=== PATIENT | male | born 1995 | race Two or more races ===

== ENCOUNTER 2024-03-22 07:15 | Day surgery (SDC) | payer OTHER, MEDICAID, SELFPAY ==
[2024-03-19 09:52] VITALS: BMI 33.7
[2024-03-19 10:08] LABS: Collection Type, Urine Clean Catch; Squamous Epithelial Cell,Urine 0 /hpf (0-5)
[2024-03-19 10:21] LABS: Basophils # (Auto) 0.1 Thou/mm3 (0.0-0.2); Basophils % (Auto) 1 % (0-2.5); Eosinophils # (Auto) 0.2 Thou/mm3 (0.0-0.5); Eosinophils % (Auto) 3 % (0-10); Hematocrit 43.4 % (41.0-53.0); Hemoglobin 14.9 g/dL (13.5-16.0); Immature Granulocytes % (Auto) 1 % (0-0); Immature Granulocytes Auto 0.06 Thou/mm3 (0.00-0.00); Lymphocytes # (Auto) 2.7 Thou/mm3 (1.0-4.8); Lymphocytes % (Auto) 28 % (10-50); Mean Corpuscular HGB Conc 34.3 g/dl (31.0-37.0); Mean Corpuscular Hemoglobin 28.7 pg (25.0-35.0); Mean Corpuscular Volume 84 fL (80-100); Monocytes # (Auto) 0.7 Thou/mm3 (0.0-0.8); Monocytes % (Auto) 7 % (0-12); Neutrophils # (Auto) 5.9 Thou/mm3 (1.8-7.7); Neutrophils % (Auto) 62 % (37-80); Nucleated Red Blood Cell % 0 /100 WBC (0); Platelet Count 216 Thou/mm3 (140-440); RDW Standard Deviation 39.1 fL (35.1-43.9); White Blood Count 9.7 Thou/mm3 (3.8-10.6)
[2024-03-19 10:24] LABS: Bilirubin,Urine Negative (Negative); Blood,Urine 1+ (Negative); Clarity,Urine Clear (Clear/Hazy); Color,Urine Lt-Yellow (Lt Yel-Yel); Glucose, Urine Negative (Negative); Ketones,Urine Negative (Negative); Leukocyte Esterase,Urine Negative (Negative); Nitrite,Urine Negative (Negative); PH,Urine 5.5 (5.0-7.0); Protein,Urine Negative (Neg - Trace); RBC,Urine 1 /hpf (0-3); Specific Gravity,Urine 1.025 (1.001-1.035); Urobilinogen,Urine Negative mg/dL (0.0-1.0); WBC,Urine 1 /hpf (0-5)
[2024-03-19 10:37] LABS: Anion Gap 8 (7-16); BUN/Creatinine Ratio 17 Ratio (12-20); Blood Urea Nitrogen 12 mg/dL (9-23); Calcium 9.4 mg/dL (8.3-10.6); Carbon Dioxide 25.4 mMol/L (20.0-31.0); Chloride 106 mMol/L (98-107); Creatinine (Component) 0.7 mg/dL (0.6-1.3); Estimated Creatinine Clearance 173.5 mL/min (>60); Glucose 97 mg/dL (74-106); Osmolality,Calculated 277 (275-295); Potassium 3.8 mMol/L (3.4-5.1); Sodium 139 mMol/L (136-145); eGFR > 60 See Note
--- NOTE | 2024-03-21 11:31 | ESHP_ITS ---
RE: HAO MCWILLIAMS : 1995 DATE OF ADMISSION: 03/22/2024 HISTORY OF PRESENT ILLNESS: A 28-year-old male with a left renal stone 8 mm in size. He is now scheduled to have ESWL for left renal stone. The patient had pain in his back. He has been urinating well. The patient had a history of kidney stones in the past and had surgery in March of 2022. SOCIAL HISTORY: The patient has no children. PAST MEDICAL HISTORY: No history of diabetes mellitus or hypertension. ALLERGIES: NONE KNOWN. MEDICATIONS: None. PHYSICAL EXAMINATION: HEENT: Normal. NECK: Supple. LUNGS: Clear. CARDIOVASCULAR: Heart sounds are normal. ABDOMEN: Soft without any organomegaly. No guarding. No rigidity. EXTREMITIES: Normal. LABORATORY DATA: KUB film was taken, which revealed multiple renal calculi, the largest being 8 mm on the left kidney. IMPRESSION: Left renal calculi. PLAN: ESWL for left kidney stone, which is about 8 mm in size. Planned procedure, risks and complications have been discussed with the patient. The patient has understood them and agreed to proceed. DT: 11:01:39 TT: 11:29:00 Ref: [id number] - TID: [id number]
[2024-03-22] VITALS (7 sets, daily range): BP systolic 117–140; BP diastolic 72–91; PULSE 73–96; RESP 14–18; TEMP 36.2–36.9; O2SAT 97–100; BMI 33.5
--- NOTE | 2024-03-22 06:00 | XR_ITS ---
Examination: Abdomen AP single view Technique: AP portable supine abdomen, single view Exam date and time: March 22, 2024 0723 hours INDICATIONS: Preop lithotripsy, history kidney stones FINDINGS: 7 mm 3 mm calculi mid to lower pole left kidney No ureteral calculi Nonobstructive bowel gas pattern IMPRESSION: Left renal calculus
[2024-03-22] MEDS: RINGERS LACTATED 1000 ML 1,000 ML 20 ML IV (07:58)
--- NOTE | 2024-03-22 10:05 | SUR.PHASEI ---
1005 Patient arrived to recovery resting comfortably in [facility], sleeping and able to arouse with verbal prompting then fall back asleep, breathing unlabored, vital signs stable, denies pain, lung sounds clear upon auscultation, bilateral radial pulses present when palpated, report received from Roselia QURESHI and Dr. Gaston
--- NOTE | 2024-03-22 10:28 | SUR.PHASEI ---
patient eating ice chips tolerating well
--- NOTE | 2024-03-22 10:59 | SUR.PHASEII ---
1059 Patient meets discharge criteria from recovery, awake and alert, breathing unlabored, vital signs stable, denies pain, patient voided prior to discharge, ate a jello and drinking apple juice; denies pain, patient able to dress himself into his clothing, discharge instruction given to patient and patient partner, partner signed discharge instructions. Patient given all his belongings prior to discharge, transported via wheelchair and left in a private vehicle.
--- NOTE | 2024-03-22 11:01 | SUR.OPER ---
Power 7/8 2800 shocks 1.59 Fluro time
--- NOTE | 2024-03-22 15:41 | ESOP_ITS ---
RE: HAO MCWILLIAMS : 1995 DATE OF OPERATION: 03/22/2024 PREOPERATIVE DIAGNOSIS: Left kidney stones. POSTOPERATIVE DIAGNOSIS: Left kidney stones. PROCEDURE PERFORMED: ESWL for left kidney stones. ANESTHESIA: General by Dr. Gaston. INDICATION: The patient is a 28-year-old male with left renal stones about 8 mm in size. He was now scheduled to have ESWL for left renal stones. Planned procedure, risks and complications have been discussed with the patient. The patient understood them and agreed to proceed. DESCRIPTION OF PROCEDURE: After the patient was brought to the operating table under adequate general anesthesia, patient was positioned on Dornier Delta III lithotripsy machine. The 2500 shocks were given to the stone in the left midpole up to power level 7-8. The patient tolerated the entire procedure well and left the room in good condition. Thank you very much for your kind referral. DT: 11:33:30 TT: 15:39:00 Ref: [id number] - TID: [id number]
== END 2024-03-22 10:59 | disposition home or self-care (01) ==
PROVIDERS: PCP Family Medicine; Referring Provider Surgery; Visit Provider Surgery
PROC: (CPT 50590; principal; 2024-03-22 09:15)
DX: N20.0 Calculus of kidney (principal); Z87.442 Personal history of urinary calculi
CPT/HCPCS: 50590; 36415; 74018; 80048; 81001; 85025; A4217; J0694; J1940; J2250; J2405; J2704; J2765; J3010; J7120

== ENCOUNTER 2024-03-24 05:54 | Emergency (ER) | payer OTHER, MEDICAID, SELFPAY ==
[2024-03-24 05:55] VITALS: BMI 32.8
[2024-03-24 06:22] VITALS: BP 149/91; PULSE 101; RESP 23; TEMP 36.6; O2SAT 97
[2024-03-24 06:23] VITALS: BMI 32.8
--- NOTE | 2024-03-24 06:28 | EDRME_ITS ---
Rapid Medical Screening Exam [facility] Arrival date/time: 03/24/24 05:54 Chief Complaint: Back Pain/Injury Time Seen by Provider: 03/24/24 06:20 Vital signs: Vital Signs Temperature 97.9 F 03/24/24 06:22 Pulse Rate 101 H 03/24/24 06:22 Respiratory Rate 23 H 03/24/24 06:22 Blood Pressure 149/91 H 03/24/24 06:22 Pulse Oximetry (%) 97 03/24/24 06:22 Oxygen Delivery Method Room Air 03/24/24 06:22 E Narrative: 28-year-old patient presents emergency department with complaint of flank pain. Patient states that he has a history of kidney stone and recently had lithotripsy done 2 days ago. Patient states that he was supposed to get a stent placed however none was placed he states that he has had difficulty urinating since 2 AM. He has been taking his prescribed [place] but that has not relieved his pain. He rates his pain currently as a 10 out of 10. He denies fever or chills.
--- NOTE | 2024-03-24 06:30 | XR_ITS ---
Examination: CT abdomen and pelvis without contrast. Coronal 3-D reconstructions. Sagittal 2-D reconstructions. Date and time of exam: March 24, 2024 at 0654 hrs. Comparison 11/29/2022 Indications: Left flank pain today, status post lithotripsy procedure for kidney stones March 22, 2024 CTDI: vol (mGy): 9.98 DLP: (mGycm): 587 Technique: Axial images of the abdomen have been obtained, 3 mm slice thickness Intravenous contrast material has not been administered. Low dose protocols were performed. One or more of the following dose reduction techniques were used; automated exposure control, adjustment of the mA and/or KV according to patient size, use of iterative reconstruction technique. Findings: No focal liver or splenic lesion No gallstones No pancreatic mass Aorta normal size Multiple left renal calculi, the largest 6 mm Moderate left hydronephrosis which is secondary to 4 mm mid, 6 mm distal left ureteral calculi No bowel obstruction Tiny fat-containing umbilical hernia Normal appendix No diverticulitis No bladder calculi Impression: Multiple left renal calculi Moderate left hydronephrosis which is secondary to 4 mm mid 6 mm distal left ureteral calculi
[2024-03-24] MEDS: MORPHINE SULF INJ 10 MG/ML VIAL 4 MG IM (07:16)
[2024-03-24] MEDS: KETOROLAC INJ 60 MG/2 ML VIAL IM (07:19)
[2024-03-24 07:59] LABS: Basophils # (Auto) 0.1 Thou/mm3 (0.0-0.2); Basophils % (Auto) 1 % (0-2.5); Eosinophils # (Auto) 0.2 Thou/mm3 (0.0-0.5); Eosinophils % (Auto) 2 % (0-10); Hematocrit 42.6 % (41.0-53.0); Hemoglobin 14.9 g/dL (13.5-16.0); Immature Granulocytes % (Auto) 1 % (0-0); Immature Granulocytes Auto 0.06 Thou/mm3 (0.00-0.00); Lymphocytes # (Auto) 1.9 Thou/mm3 (1.0-4.8); Lymphocytes % (Auto) 15 % (10-50); Mean Corpuscular Hemoglobin 28.7 pg (25.0-35.0); Mean Corpuscular Volume 82 fL (80-100); Monocytes # (Auto) 1.1 Thou/mm3 (0.0-0.8); Monocytes % (Auto) 9 % (0-12); Neutrophils # (Auto) 9.2 Thou/mm3 (1.8-7.7); Neutrophils % (Auto) 74 % (37-80); Nucleated Red Blood Cell % 0 /100 WBC (0); Platelet Count 210 Thou/mm3 (140-440); RDW Standard Deviation 38.2 fL (35.1-43.9); Red Blood Count 5.19 Miln/mm3 (4.50-5.90); White Blood Count 12.5 Thou/mm3 (3.8-10.6)
[2024-03-24 08:15] LABS: Alanine Aminotransferase 59 U/L (10-49); Albumin, Serum 4.5 gm/dL (3.5-5.0); Albumin/Globulin Ratio 1.6 (1.2-2.2); Alkaline Phosphatase 98 U/L (46-116); Anion Gap 8 (7-16); Aspartate Amino Transferase 33 U/L (0-34); BUN/Creatinine Ratio 15 Ratio (12-20); Bilirubin,Total 0.6 mg/dL (0.3-1.2); Blood Urea Nitrogen 12 mg/dL (9-23); Calcium 9.2 mg/dL (8.3-10.6); Calcium (Corrected) 9.2 mg/dL (8.5-10.1); Carbon Dioxide 25.8 mMol/L (20.0-31.0); Chloride 102 mMol/L (98-107); Creatinine (Component) 0.8 mg/dL (0.6-1.3); Estimated Creatinine Clearance 149.9 mL/min (>60); Globulin 2.8 gm/dL (2.3-3.5); Glucose 103 mg/dL (74-106); Lipase 27 U/L (12-53); Osmolality,Calculated 271 (275-295); Potassium 3.6 mMol/L (3.4-5.1); Sodium 136 mMol/L (136-145); Total Protein 7.3 gm/dL (5.7-8.2); eGFR > 60 See Note
[2024-03-24 08:55] LABS: Collection Type, Urine Voided
[2024-03-24 08:59] VITALS: BP 130/88; PULSE 78; RESP 16; TEMP 36.6; O2SAT 100
[2024-03-24 09:05] LABS: Bilirubin,Urine Negative (Negative); Blood,Urine 3+ (Negative); Color,Urine Yellow (Lt Yel-Yel); Glucose, Urine Negative (Negative); Ketones,Urine Negative (Negative); Leukocyte Esterase,Urine Positive (Negative); Nitrite,Urine Negative (Negative); PH,Urine 5.5 (5.0-7.0); Protein,Urine Trace (Neg - Trace); RBC,Urine 47 /hpf (0-3); Specific Gravity,Urine 1.023 (1.001-1.035); Squamous Epithelial Cell,Urine < 1 /hpf (0-5); Urobilinogen,Urine Negative mg/dL (0.0-1.0); WBC,Urine 11 /hpf (0-5)
[2024-03-24 09:06] LABS: Clarity,Urine Hazy (Clear/Hazy); Culture Indicated,Urine Yes
--- NOTE | 2024-03-24 09:43 | EDNOTE_ITS ---
ED Abdominal Pain RME/HPI General Chief Complaint: Back Pain/Injury Stated complaint: LEFT FLANK PAIN Time seen by provider: 03/24/24 06:20 Arrival date/time: 03/24/24 05:54 RME / HPI RME / HPI narrative: 28-year-old patient presents emergency department with complaint of flank pain. Patient states that he has a history of kidney stone and recently had lithotripsy done 2 days ago. Patient states that he was supposed to get a stent placed however none was placed he states that he has had difficulty urinating since 2 AM. He has been taking his prescribed [place] but that has not relieved his pain. He rates his pain currently as a 10 out of 10. He denies fever or chills. DR. RAYMOND MAIN ED EVALUATION: 28 year old male with past medical history significant for kidney stone and recently had lithotripsy for left kidney stones by Dr. Page presents to the Emergency Department with complaint of left flank pain. Pain is described as aching and rated mild to moderate in severity. Patient denies any of the following: fevers, chills, vomiting, diarrhea, or any other symptoms at this time. Patient denies any tobacco, alcohol, or substance use. Related Data Previous Rx's ?Medication ?Instructions ?Recorded ciprofloxacin HCl 500 mg tablet 500 mg PO BID #14 tabs 03/22/24 hydrocodone 5 mg-acetaminophen 325 1 tab PO Q6H PRN pain #30 tabs 03/22/24 mg tablet tamsulosin 0.4 mg capsule (Flomax) 0.4 mg PO QDAY #30 caps 03/24/24 Allergies Allergy/AdvReac Type Severity Reaction Status Date / Time No Known Allergies Allergy Verified 03/22/24 09:57 Review of Systems Review of Systems Systems Reviewed: All systems reviewed, normal except as documented Narrative Review of Systems: GEN: No fever, no chills, no weight loss EYES: No discharge, no visual changes, no pain HEENT: No ear pain, no congestion, no sore throat PULM: No shortness of breath, no cough, no congestion CV: No chest pain, no dyspnea on exertion, no palpitations GI: No nausea, no vomiting, no diarrhea, + left flank pain, no constipation : No frequency, no urgency and no dysuria MUSC/SKEL: No joint pain, no back pain SKIN: No rash PSYCH: No hallucinations, no depression HEME/LYMPH: No easy bleeding or bruising tendencies NEURO: No weakness, no headache Past Medical History Past Medical History GENITOURINARY: Positive Genitourinary Disorders and Kidney Stones OTHER HISTORY: Positive Hospitalization (kidney stones) Social History SMOKING STATUS: Never smoker SUBSTANCE USE: does not use ALCOHOL: Never ED Exam Narrative Physical exam: GENERAL APPEARANCE: Well hydrated, well nourished, in no acute distress. VITALS: All vitals were reviewed and the pulse ox is 100% on room air which is normal according to my interpretation. HEENT: Normocephalic, atramatic, EOMI, EACs are patent. There is no bulge or retraction. Throat without erythema or exudate. Moist oromucosa. No jaundice NECK: Supple, no JVD or bruits. CARDIOVASCULAR: Heart regular without S3-S4 or murmur. No rubs or gallops. LUNGS/CHEST: Clear to auscultation bilaterally. No rales, rhonchi, or wheezing. Normal inspection. ABDOMEN: Soft, nontender, with normal bowel sounds. No pulsatile masses. No rebound, rigidity, or guarding. No incarcerated hernia. Normal inspection and palpation. EXTREMITIES: No edema, clubbing, or cyanosis. Intact CSM. Normal inspection and palpation. SKIN: Warm and dry without rashes. Normal inspection. MUSCULOSKELETAL: No gross deformity, full ROM all extremities. Normal inspection. NEURO: Alert and oriented x3. Cranial nerves II through XII grossly intact. There are no other motor or sensory deficits noted. PSYCHIATRIC: Normal mood and affect. No psychosis. Course Quality Measures none Orders Category Date Time Status Insert IV NOW Care 03/24/24 10:[address] abdomen pelvis wo con Stat Exams 03/24/24 06:30 Completed CBC Stat Lab 03/24/24 07:15 Completed CMP [Comprehensive Metabolic Panel] Stat Lab 03/24/24 07:15 Completed Lipase Stat Lab 03/24/24 07:15 Completed Urinalysis, C/S if Indicated Stat Lab 03/24/24 08:37 Completed Urine Culture Stat Lab 03/24/24 08:37 Received Ketorolac Inj [Toradol Inj] Med 03/24/24 06:30 Discontinued 60 mg IM X1 ONE Morphine Inj Med 03/24/24 06:30 Discontinued 4 mg IM X1 ONE Sodium Chloride 0.9% 1000 ml [Ns] 1,000 ml Med 03/24/24 09:54 Discontinued IV 999 mls/hr Reevaluation(s) Reevaluation #1: Patient states he went to the restroom and urinated some kidney stones, he showed me a picture. Now, he feels much better. Time: 09:54 Vital Signs Vital signs: Vital Signs Temperature 97.9 F 03/24/24 06:22 Pulse Rate 101 H 03/24/24 06:22 Respiratory Rate 23 H 03/24/24 06:22 Blood Pressure 149/91 H 03/24/24 06:22 Pulse Oximetry (%) 97 03/24/24 06:22 Oxygen Delivery Method Room Air 03/24/24 06:22 Abdominal Pain MDM MDM Narrative MDM Narrative:: I, Dayanara Zheng, am scribing for and in the presence of Dr. Raymond. CBC showing WBC count of 12.5. CMP and lipase are negative. UA showing microscopic blood in the urine. CT abdomen and pelvic reviewed by and interpreted by me: A few small stones inside the left kidney itself. There is a mild to moderate hydronephrosis. There is a couple of small stones in the left ureter. No bowel obstruction. No free air. No free fluid. In the emergency department the patient received IV fluid. He also received T oradol for pain. He actually urinated a lot and some of the stones actually came out. And he show me those stones. They are small and dark. Subsequently he is pain-free. I will write a prescription for Flomax to be used at home. I encouraged him to drink plenty of liquid to flush it out. He is also encouraged to follow-up with , his urologist for further evaluation and treatment. He is encouraged to return the nearest emergency department if condition worsens or if new symptoms develop including flank pain and fever and trouble urinating. Patient data External records reviewed:: [facility] previous records (Reviewed lithotripsy note by Dr. Page dated 03/22/24.) Clinical information provided by:: patient Social determinants that could affect healthcare access:: none Patient has the following chronic illnesses:: Kidney stones, lithotripsy for left kidney stones by Dr. Page. How is presenting disease/condition affected by chronic disease/condition?: caused by Evaluation data The following diagnostics were reviewed and interpreted by me:: lab results and radiology exam(s) Lab and/or radiology exams considered but not ordered:: none Interpretation Summary: Procedure(s): CT abdomen pelvis wo con Accession Number(s): [id number] cc: Frank Espinoza MD; Faraz Terrell PA-C; CORINA JUNE~ Examination: CT abdomen and pelvis without contrast. Coronal 3-D reconstructions. Sagittal 2-D reconstructions. Date and time of exam: March 24, 2024 at 0654 hrs. Comparison 11/29/2022 Indications: Left flank pain today, status post lithotripsy procedure for kidney stones March 22, 2024 CTDI: vol (mGy): 9.98 DLP: (mGycm): 587 Technique: Axial images of the abdomen have been obtained, 3 mm slice thickness Intravenous contrast material has not been administered. Low dose protocols were performed. One or more of the following dose reduction techniques were used; automated exposure control, adjustment of the mA and/or KV according to patient size, use of iterative reconstruction technique. Findings: No focal liver or splenic lesion No gallstones No pancreatic mass Aorta normal size Multiple left renal calculi, the largest 6 mm Moderate left hydronephrosis which is secondary to 4 mm mid, 6 mm distal left ureteral calculi No bowel obstruction Tiny fat-containing umbilical hernia Normal appendix No diverticulitis No bladder calculi Impression: Multiple left renal calculi Moderate left hydronephrosis which is secondary to 4 mm mid 6 mm distal left ureteral calculi Dictated By: Frank Espinoza MD Medications / Prescriptions Medications or Prescriptions considered but not ordered:: none Medication administrations:: Medication Administration History Discontinued Medications Sodium Chloride (Ns) 1,000 mls @ 999 mls/hr IV .Q1H1M ONE Stop: 03/24/24 10:54 Last Infusion: 03/24/24 11:33 Dose: Infused Documented By: Admin: 03/24/24 10:20 Dose: 999 mls/hr Documented By: DB Ketorolac Tromethamine (Ketorolac Inj 60 Mg/2 Ml Vial) 60 mg IM X1 ONE Stop: 03/24/24 06:31 Last Admin: 03/24/24 07:19 Dose: 60 mg Documented By: ED Morphine Sulfate (Morphine Sulf Inj 10 Mg/Ml Vial) 4 mg IM X1 ONE Stop: 03/24/24 06:31 Last Admin: 03/24/24 07:16 Dose: 4 mg Documented By: ED see above Consultations Consultation(s) initiated? (list below): No Diagnosis Differential diagnosis abdominal pain: abdominal pain, calculus of kidney and constipation Most likely diagnosis given after review of the tests above:: Kidney stones Ureteral stone Admission Indicated Admission indicated?: not indicated Admission Request Was there a request for admission?: No Disposition Plan Disposition Plan: Discharge Discharge Attestation Discharge Attestation: The patient and all family members were given an opportunity to ask questions and understood the discharge instructions. Discharge instructions specifically effects, indications for sooner follow up or return to the emergency department, and the expected course of current diagnosis. Patient condition: Stable Discharge Plan Plan Patient Disposition: HOME (Self Care) Disposition Comment: Stable for [place] home Prescriptions/Referrals Prescriptions/Med Rec: New tamsulosin [Flomax] 0.4 mg capsule 0.4 mg PO QDAY Qty: 30 0RF No Action hydrocodone-acetaminophen 5-325 mg tablet 1 tab PO Q6H MDD 4 PRN (Reason: pain) Qty: 30 0RF ciprofloxacin HCl 500 mg tablet 500 mg PO BID Qty: 14 0RF Referrals: Corina June [Primary Care Provider] - In 1 week Problem List Clinical Impression: Kidney stones, Left ureteral stone Patient/Caregiver Discharge Instructions Education Materials: ED Kidney Stone w/ Colic Additional Instructions: Drink plenty of liquid. Take Flomax as prescribed. Follow-up with your urologist for further care. Return to emergency department if condition worsens or if new symptoms develop especially fever flank pain and trouble urinating Print Language: [place] Stand Alone Forms: Alessandra Award Info., Patient Portal Info Letter
[2024-03-24 10:00] VITALS: BP 121/83; PULSE 93; RESP 18; TEMP 36.6; O2SAT 99
[2024-03-24] MEDS: SODIUM CHLORIDE 0.9% 1000 ML 1,000 ML 999 ML IV (10:20)
[2024-03-24 12:00] VITALS: BP 125/84; PULSE 88; RESP 16; TEMP 36.6; O2SAT 99
== END 2024-03-24 13:29 | disposition home or self-care (01) ==
PROVIDERS: Physician Assistant; Emergency Provider Emergency Medicine; PCP Physician Assistant
DX: N13.2 Hydronephrosis with renal and ureteral calculous obstruction (principal)
CPT/HCPCS: 36415; 74176; 80053; 81001; 83690; 85025; 87086; 96360; 96372; 99284; J1885; J2270; J7030

== ENCOUNTER → 2024-04-01 | Outpatient (CLI) | payer OTHER, MEDICAID, SELFPAY ==
[2024-04-01 10:44] LABS: Collection Type, Urine Clean Catch
[2024-04-01 11:23] LABS: Basophils # (Auto) 0.1 Thou/mm3 (0.0-0.2); Basophils % (Auto) 1 % (0-2.5); Eosinophils # (Auto) 0.2 Thou/mm3 (0.0-0.5); Eosinophils % (Auto) 2 % (0-10); Hematocrit 41.8 % (41.0-53.0); Hemoglobin 14.1 g/dL (13.5-16.0); Immature Granulocytes % (Auto) 0 % (0-0); Immature Granulocytes Auto 0.04 Thou/mm3 (0.00-0.00); Lymphocytes # (Auto) 2.4 Thou/mm3 (1.0-4.8); Lymphocytes % (Auto) 27 % (10-50); Mean Corpuscular HGB Conc 33.7 g/dl (31.0-37.0); Mean Corpuscular Hemoglobin 28.5 pg (25.0-35.0); Mean Corpuscular Volume 85 fL (80-100); Monocytes # (Auto) 0.6 Thou/mm3 (0.0-0.8); Monocytes % (Auto) 7 % (0-12); Neutrophils # (Auto) 5.7 Thou/mm3 (1.8-7.7); Neutrophils % (Auto) 64 % (37-80); Nucleated Red Blood Cell % 0 /100 WBC (0); Platelet Count 255 Thou/mm3 (140-440); RDW Standard Deviation 39.8 fL (35.1-43.9); Red Blood Count 4.94 Miln/mm3 (4.50-5.90)
[2024-04-01 11:27] LABS: Bilirubin,Urine Negative (Negative); Blood,Urine 1+ (Negative); Clarity,Urine Clear (Clear/Hazy); Color,Urine Lt-Yellow (Lt Yel-Yel); Culture Indicated,Urine Not Indicated; Glucose, Urine Negative (Negative); Ketones,Urine Negative (Negative); Leukocyte Esterase,Urine Negative (Negative); Nitrite,Urine Negative (Negative); Protein,Urine Negative (Neg - Trace); RBC,Urine 3 /hpf (0-3); Specific Gravity,Urine 1.026 (1.001-1.035); Squamous Epithelial Cell,Urine < 1 /hpf (0-5); Urobilinogen,Urine Negative mg/dL (0.0-1.0); WBC,Urine 4 /hpf (0-5)
[2024-04-01 11:34] LABS: Glucose Estimated Average 100 mg/dL (80-131); Hemoglobin A1C 5.1 % Hgb (4.8-6.0)
[2024-04-01 12:11] LABS: Alanine Aminotransferase 58 U/L (10-49); Albumin, Serum 4.4 gm/dL (3.5-5.0); Albumin/Globulin Ratio 1.7 (1.2-2.2); Alkaline Phosphatase 91 U/L (46-116); Anion Gap 9 (7-16); Aspartate Amino Transferase 26 U/L (0-34); BUN/Creatinine Ratio 18 Ratio (12-20); Bilirubin,Total 0.6 mg/dL (0.3-1.2); Blood Urea Nitrogen 14 mg/dL (9-23); Calcium 9.5 mg/dL (8.3-10.6); Calcium (Corrected) 9.5 mg/dL (8.5-10.1); Cardiac Risk Estimate 4.2 RATIO (4.0-6.7); Chloride 105 mMol/L (98-107); Cholesterol 177 mg/dL (132-200); Creatinine (Component) 0.8 mg/dL (0.6-1.3); Globulin 2.6 gm/dL (2.3-3.5); Glucose 94 mg/dL (74-106); HDL Cholesterol 42 mg/dL (40-60); LDL Cholesterol,Calculated 115 mg/dL (0-130); Osmolality,Calculated 281 (275-295); Potassium 3.8 mMol/L (3.4-5.1); Sodium 141 mMol/L (136-145); Thyroid Stimulating Hormone 0.83 uIU/mL (0.55-4.78); Triglycerides 102 mg/dL (30-150); eGFR > 60 See Note
== END | disposition home or self-care (01) ==
PROVIDERS: PCP Family Medicine; Referring Provider Physician Assistant; Visit Provider Physician Assistant
DX: N20.0 Calculus of kidney (principal)
CPT/HCPCS: 36415; 80053; 80061; 81001; 83036; 84443; 85025

== ENCOUNTER 2024-04-05 18:36 | Emergency (ER) | payer OTHER, MEDICAID, SELFPAY ==
[2024-04-05 18:38] VITALS: BMI 32.8
[2024-04-05 18:46] VITALS: BP 133/91; PULSE 100; RESP 19; TEMP 37; O2SAT 97; BMI 32.1
--- NOTE | 2024-04-05 18:52 | XR_ITS ---
Examination: CT abdomen and pelvis without contrast. Coronal 3-D reconstructions. Sagittal 2-D reconstructions. Date and time of exam:April 05, 2024 1916 hrs. Comparison March 24, 2024 Indications: Generalized abdominal pain post lithotripsy March 22, 2024, moderate left hydronephrosis 4 mm 6 mm distal left ureteral calculi on CT study March 24, 2024 CTDI: vol (mGy): 9.71 DLP: (mGycm): 541 Technique: Axial images of the abdomen have been obtained, 3 mm slice thickness Intravenous contrast material has not been administered. Low dose protocols were performed. One or more of the following dose reduction techniques were used; automated exposure control, adjustment of the mA and/or KV according to patient size, use of iterative reconstruction technique. Findings: No focal liver or splenic lesions Contracted gallbladder No pancreatic mass Multiple left renal calculi again noted Persistent moderate left hydronephrosis secondary to on this study 6 mm calculus distal left ureter No bladder calculi Study is otherwise unchanged Impression: Persistent moderate left hydronephrosis secondary to 6 mm calculus in the distal left ureter
--- NOTE | 2024-04-05 18:52 | PD.EDRME ---
Rapid Medical Screening Exam E Arrival date/time: 04/05/24 18:36 28-year-old male with a history of lithotripsy for a left ureteral stone presents to the emergency room with a chief complaint of 3 out of 10 left-sided CVA tenderness, and 7 out of 10 left lower abdominal pain. Patient denies any hematuria, vomiting, fevers. I have greeted and performed a focused initial assessment of this patient. A comprehensive ED assessment and evaluation of the patient, analysis of all test results, and completion of the medical decision making process will be conducted by additional ED providers. Chief Complaint: Abdominal Pain Time Seen by Provider: 04/05/24 18:52 Vital signs: Vital Signs Temperature 98.6 F 04/05/24 18:46 Pulse Rate 100 04/05/24 18:46 Respiratory Rate 19 04/05/24 18:46 Blood Pressure 133/91 H 04/05/24 18:46 Pulse Oximetry (%) 97 04/05/24 18:46 Oxygen Delivery Method Room Air 04/05/24 18:46 Vital signs reviewed by provider: Yes
[2024-04-05] MEDS: KETOROLAC INJ 60 MG/2 ML VIAL 30 MG IM (18:59)
[2024-04-05 19:18] LABS: Collection Type, Urine Clean Catch
[2024-04-05 19:22] LABS: Basophils # (Auto) 0.1 Thou/mm3 (0.0-0.2); Basophils % (Auto) 1 % (0-2.5); Eosinophils # (Auto) 0.2 Thou/mm3 (0.0-0.5); Eosinophils % (Auto) 1 % (0-10); Hematocrit 42.1 % (41.0-53.0); Hemoglobin 14.8 g/dL (13.5-16.0); Immature Granulocytes % (Auto) 0 % (0-0); Immature Granulocytes Auto 0.04 Thou/mm3 (0.00-0.00); Lymphocytes # (Auto) 3.4 Thou/mm3 (1.0-4.8); Lymphocytes % (Auto) 26 % (10-50); Mean Corpuscular HGB Conc 35.2 g/dl (31.0-37.0); Mean Corpuscular Hemoglobin 28.6 pg (25.0-35.0); Mean Corpuscular Volume 81 fL (80-100); Monocytes % (Auto) 8 % (0-12); Neutrophils # (Auto) 8.2 Thou/mm3 (1.8-7.7); Neutrophils % (Auto) 64 % (37-80); Nucleated Red Blood Cell % 0 /100 WBC (0); Platelet Count 263 Thou/mm3 (140-440); RDW Standard Deviation 38.2 fL (35.1-43.9); Red Blood Count 5.17 Miln/mm3 (4.50-5.90); White Blood Count 12.9 Thou/mm3 (3.8-10.6)
[2024-04-05 19:25] LABS: Bilirubin,Urine Negative (Negative); Blood,Urine 3+ (Negative); Clarity,Urine Clear (Clear/Hazy); Color,Urine Lt-Yellow (Lt Yel-Yel); Glucose, Urine Negative (Negative); Ketones,Urine Negative (Negative); Leukocyte Esterase,Urine Negative (Negative); Nitrite,Urine Negative (Negative); PH,Urine 6.5 (5.0-7.0); Protein,Urine Trace (Neg - Trace); RBC,Urine 53 /hpf (0-3); Specific Gravity,Urine 1.021 (1.001-1.035); Squamous Epithelial Cell,Urine < 1 /hpf (0-5); Urobilinogen,Urine Negative mg/dL (0.0-1.0); WBC,Urine 3 /hpf (0-5)
[2024-04-05 19:40] LABS: Alanine Aminotransferase 45 U/L (10-49); Albumin, Serum 4.6 gm/dL (3.5-5.0); Anion Gap 9 (7-16); Aspartate Amino Transferase 25 U/L (0-34); BUN/Creatinine Ratio 15 Ratio (12-20); Bilirubin,Total 0.6 mg/dL (0.3-1.2); Blood Urea Nitrogen 12 mg/dL (9-23); Calcium 9.6 mg/dL (8.3-10.6); Calcium (Corrected) 9.6 mg/dL (8.5-10.1); Carbon Dioxide 27.5 mMol/L (20.0-31.0); Chloride 105 mMol/L (98-107); Creatinine (Component) 0.8 mg/dL (0.6-1.3); Estimated Creatinine Clearance 152.9 mL/min (>60); Glucose 103 mg/dL (74-106); Osmolality,Calculated 280 (275-295); Potassium 3.5 mMol/L (3.4-5.1); Sodium 141 mMol/L (136-145); Total Protein 7.6 gm/dL (5.7-8.2); eGFR > 60 See Note
[2024-04-05 19:41] LABS: Albumin/Globulin Ratio 1.5 (1.2-2.2); Alkaline Phosphatase 98 U/L (46-116); Lipase 32 U/L (12-53)
--- NOTE | 2024-04-05 20:31 | PD.EDABDPN ---
ED Abdominal Pain RME/HPI General Chief Complaint: Abdominal Pain Stated complaint: ABD PAIN SINCE 299, LITHOTRIPSY DONE 03/22/24 Time seen by provider: 04/05/24 18:52 Arrival date/time: 04/05/24 18:36 RME / HPI RME / HPI narrative: 28-year-old male with a history of lithotripsy for a left ureteral stone presents to the emergency room with a chief complaint of 3 out of 10 left-sided CVA tenderness, and 7 out of 10 left lower abdominal pain. Onset of symptoms since 3 AM this morning. Patient denies any hematuria, vomiting, fevers. Denies any other complaints. Patient had lithotripsy done last March Related Data Previous Rx's ?Medication ?Instructions ?Recorded ciprofloxacin HCl 500 mg tablet 500 mg PO BID #14 tabs 03/22/24 hydrocodone 5 mg-acetaminophen 325 1 tab PO Q6H PRN pain #30 tabs 03/22/24 mg tablet tamsulosin 0.4 mg capsule (Flomax) 0.4 mg PO QDAY #30 caps 03/24/24 Allergies Allergy/AdvReac Type Severity Reaction Status Date / Time No Known Allergies Allergy Verified 04/05/24 18:39 Review of Systems Review of Systems Narrative Review of Systems: Review of system reviewed and within normal limits except mentioned in HPI ED Exam Narrative Physical exam: VITAL SIGNS: Reviewed. GENERAL APPEARANCE: Alert and interactive, follows commands, no acute distress, HEAD AND FACE: Non-traumatic. ENT: PERRL, pink conjunctivitis, eyelid no trauma, Mucous membrane moist. NECK: Supple, nontender, no nuchal rigidity. ABDOMEN: Soft, positive bowel sounds, nondistended, no guarding, left lower quadrant tenderness, no rebound, no masses, no CVA tenderness RECTAL: Deferred. GENITAL: Deferred. NEUROLOGICAL: Gross motor function intact sensory function intact, Appropriate for age. MUSCULOSKELETAL: low back nontender, full range of motion. EXTREMITIES: Nontender, full range of motion. SKIN: Color pink, dry, no rash, no lacerations, no abrasions, no contusions. LYMPHATICS: Deferred. Course Quality Measures none Orders Category Date Time Status CT abdomen pelvis wo con Stat Exams 04/05/24 18:52 Completed CBC Stat Lab 04/05/24 19:03 Completed CMP [Comprehensive Metabolic Panel] Stat Lab 04/05/24 19:03 Completed Lipase Stat Lab 04/05/24 19:03 Completed UA [Urinalysis] Stat Lab 04/05/24 19:02 Completed Urine Culture Stat Lab 04/05/24 19:02 Ordered Ketorolac Inj [Toradol Inj] Med 04/05/24 18:52 Discontinued 30 mg IM X1 ONE Vital Signs Vital signs: Vital Signs Temperature 98.6 F 04/05/24 18:46 Pulse Rate 100 04/05/24 18:46 Respiratory Rate 19 04/05/24 18:46 Blood Pressure 133/91 H 04/05/24 18:46 Pulse Oximetry (%) 97 04/05/24 18:46 Oxygen Delivery Method Room Air 04/05/24 18:46 Abdominal Pain MDM MDM Narrative MDM Narrative:: 28-year-old male with a history of lithotripsy for a left ureteral stone presents to the emergency room with a chief complaint of 3 out of 10 left-sided CVA tenderness, and 7 out of 10 left lower abdominal pain. Onset of symptoms since 3 AM this morning. Patient denies any hematuria, vomiting, fevers. Denies any other complaints. Patient had lithotripsy done last March Laboratory workup all came back unremarkable. Urinalysis no UTI. CT scan of the abdomen and pelvis showed Persistent moderate left hydronephrosis secondary to 6 mm calculus in the distal left ureter Patient data External records reviewed:: None Clinical information provided by:: patient Social determinants that could affect healthcare access:: none Patient has the following chronic illnesses:: None How is presenting disease/condition affected by chronic disease/condition?: exacerbated by Evaluation data The following diagnostics were reviewed and interpreted by me:: radiology exam(s) Lab and/or radiology exams considered but not ordered:: None Interpretation Summary: Laboratory workup all came back unremarkable. Urinalysis no UTI. CT scan of the abdomen and pelvis showed Persistent moderate left hydronephrosis secondary to 6 mm calculus in the distal left ureter Medications / Prescriptions Medications or Prescriptions considered but not ordered:: None Medication administrations:: Medication Administration History Discontinued Medications Ketorolac Tromethamine (Ketorolac Inj 60 Mg/2 Ml Vial) 30 mg IM X1 ONE Stop: 04/05/24 18:53 Last Admin: 04/05/24 18:59 Dose: 30 mg Documented By: OA Toradol IM Consultations Consultation(s) initiated? (list below): No Diagnosis Differential diagnosis abdominal pain: abdominal pain and other (Ureterolithiasis, small bowel obstruction UTI) Most likely diagnosis given after review of the tests above:: Ureterolithiasis Admission Indicated Admission indicated?: not indicated Explain why admission is indicated or not indicated:: None Admission Request Was there a request for admission?: No Disposition Plan Disposition Plan: Discharge Discharge Attestation Discharge Attestation: The patient was given an opportunity to ask questions and understood the discharge instructions. Discharge instructions specifically effects, indications for sooner follow up or return to the emergency department, and the expected course of current diagnosis. Patient condition: Stable Discharge Plan Plan Patient Disposition: HOME (Self Care) Disposition Comment: Stable Prescriptions/Referrals Prescriptions/Med Rec: No Action tamsulosin [Flomax] 0.4 mg capsule 0.4 mg PO QDAY Qty: 30 0RF hydrocodone-acetaminophen 5-325 mg tablet 1 tab PO Q6H MDD 4 PRN (Reason: pain) Qty: 30 0RF ciprofloxacin HCl 500 mg tablet 500 mg PO BID Qty: 14 0RF Referrals: Lopez Myles [Primary Care Provider] - In 1 week Problem List Clinical Impression: Left ureteral stone Patient/Caregiver Discharge Instructions Discharge Activity: activity as tolerated Education Materials: Preventing Kidney Stones Additional Instructions: Thank you for the opportunity for serving you today. You are stable for discharged . You are advised to: Follow-up with your PCP in 1 to 2 days Return to ED for worsening of symptoms Increase oral fluids Continue taking your pain medication Print Language: Portuguese Stand Alone Forms: Alessandra Award Info., Patient Portal Info Letter TEMI/OFELIA Supervising Physician GRETA Supervising Physician: MD Amaury
== END 2024-04-05 20:35 | disposition home or self-care (01) ==
PROVIDERS: Nurse Practitioner Family; Emergency Provider Emergency Medicine; PCP Physician Assistant
DX: N13.2 Hydronephrosis with renal and ureteral calculous obstruction (principal)
CPT/HCPCS: 36415; 74176; 80053; 81001; 83690; 85025; 96372; 99284; J1885

== ENCOUNTER → 2025-02-24 | Outpatient (CLI) | payer BC, SELFPAY ==
[2025-02-24 16:00] LABS: MHATP/TP-PA* See Sep Rpt; Syphilis Reactive (Nonreactive)
[2025-02-24 16:07] LABS: Hepatitis A Antibody IgM Non Reactive (Non React); Hepatitis B Core Antibody IgM Non Reactive (Non React); Hepatitis B Surface Antigen Non Reactive (Non React); Hepatitis C Antibody Non Reactive (Non React)
[2025-02-25 09:59] LABS: Chlamydia trachomatis PCR Negative (Not Detect); Neisseria Gonorrhoeae DNA PCR Negative (Not Detect); Trichomonas Negative (Negative)
[2025-02-25 15:48] LABS: HIV (1&2) Antibody Rapid Non-Reactive
== END | disposition home or self-care (01) ==
PROVIDERS: PCP Nurse Practitioner Family; Referring Provider Nurse Practitioner Family; Visit Provider Nurse Practitioner Family
DX: Z11.3 Encounter for screening for infections with a predominantly sexual mode of transmission (principal)
CPT/HCPCS: 36415; 80074; 86703; 86780; 87491; 87591; 87661